=== PATIENT | male | born 1975 | race Two or more races ===

== ENCOUNTER 2024-05-10 23:46 | Inpatient (IN) | payer OTHER ==
[~2024-05-10] VITALS: Ht 188 cm; Wt 94.7 kg
[2024-05-11] MEDS ORDERED: GLIP5TAB16 PO (01:25)
[2024-05-11] MEDS ORDERED: XALA2.5OS OU (01:25)
[2024-05-11] MEDS ORDERED: AMLO-257 PO (01:25)
[2024-05-11] MEDS ORDERED: ATOR40TA28 PO (01:25)
[2024-05-11] MEDS ORDERED: INSREG SQ (01:25)
[2024-05-11] MEDS ORDERED: LISI-894 PO (01:25)
[2024-05-11] MEDS ORDERED: DULA1.5P SQ (01:25)
[2024-05-11] MEDS: ONDANSETRON HCL 4 MG/2 ML VIAL IVP ONE (02:22)
[2024-05-11] MEDS: KETOROLAC TROMETHAMINE 30 MG/ML VIAL IVP ONE (02:22)
[2024-05-11 02:25] LABS: BASOPHILS % (AUTO) 0.3 % (0.0-2.0); EOSINOPHILS % (AUTO) 0.8 % (1.0-6.0); HEMATOCRIT 40.6 % (41-53); HEMOGLOBIN 14.4 g/dL (13.5-17.5); LYMPHOCYTES # (AUTO) 2.9 K/uL (1.0-4.8); LYMPHOCYTES % (AUTO) 16.3 % (22.0-44.0); MEAN CORPUSCULAR HEMOGLOBIN 31.4 pg (26.0-34.0); MEAN CORPUSCULAR HGB CONC 35.5 G/dL (31.0-37.0); MEAN CORPUSCULAR VOLUME 89 fL (80-100); MONOCYTES # (AUTO) 0.9 K/uL (0.1-1.0); MONOCYTES % (AUTO) 4.8 % (2.0-9.0); NEUTROPHILS # (AUTO) 13.8 K/uL (1.8-7.7); NEUTROPHILS % (AUTO) 77.8 % (40.0-70.0); PLATELET COUNT (AUTO) 208 K/uL (150-450); RED BLOOD CELL COUNT(AUTO) 4.59 MIL/uL (4.50-5.90); RED CELL DISTRIBUTION WIDTH 13.4 % (11.5-14.5); WHITE BLOOD COUNT (AUTO) 17.7 K/uL (4.5-11.0)
[2024-05-11 02:33] LABS: ANION GAP 3 mmol/L (8-16); CALCIUM, TOTAL 8.9 mg/dL (8.8-10.5); CARBON DIOXIDE 32 mmol/L (22-29); CHLORIDE 101 mmol/L (98-107); CREATININE 0.73 mg/dL (0.60-1.30); GLOMERULAR FILTR. RATE CALC > 60 mL/min (>60); GLUCOSE,RANDOM 277 mg/dL (70-110); POTASSIUM 3.8 mmol/L (3.5-5.1); SODIUM SERUM 136 mmol/L (136-145); UREA NITROGEN, BLOOD 10 mg/dL (7-18)
[2024-05-11 02:48] LABS: ALANINE AMINOTRANSFERASE 89 U/L (12-78); ALBUMIN 3.1 g/dL (3.4-5.0); ALKALINE PHOSPHATASE 71 U/L (46-116); ASPARTATE AMINOTRANSFERASE 46 U/L (15-37); BILIRUBIN,TOTAL 0.5 mg/dL (0.1-1.0); CREATINE KINASE, TOTAL ONLY 46 U/L (39-308); LIPASE 20 U/L (16-77); TOTAL PROTEIN, SERUM 7.3 g/dL (6.4-8.2)
[2024-05-11 02:50] LABS: B-TYPE NATRIURETIC PEPTIDE 5 pg/mL (0-100); TROPONIN I-HIGH SENSITIVITY 6 ng/L (<76)
[2024-05-11] MEDS: HYDROmorphone HCL 2 MG/ML SYRINGE IVP ONE (04:27)
[2024-05-11] MEDS ORDERED: MAGNESIUM HYDROXIDE SUSPENSION 30 ML UDCUP PO PRN (06:00)
[2024-05-11] MEDS: CefTRIAXone 1 GM/DEXTROSE 50 ML IV ONE (06:01)
[2024-05-11] MEDS: SODIUM CHLORIDE 0.9% 1,000 ML IV ONE (06:01)
[2024-05-11 06:32] LABS: APPEARANCE,URINE CLEAR (CLEAR); BILIRUBIN,URINE NEGATIVE (NEGATIVE); COLOR,URINE YELLOW (YELLOW); GLUCOSE, URINE (UA) >=1000 mg/dL (NEGATIVE); KETONES,URINE TRACE mg/dL (NEGATIVE); LEUKOCYTE ESTERASE ,URINE NEGATIVE (NEGATIVE); NITRATE,URINE NEGATIVE (NEGATIVE); OCCULT BLOOD,URINE NEGATIVE (NEGATIVE); PH,URINE 6.5 (5.0-8.0); PROTEIN,URINE 100-200,SEE CONFIRM mg/dL (NEGATIVE)
[2024-05-11 06:34] LABS: LACTIC ACID 1.8 mmol/L (0.4-2.0)
[2024-05-11] MEDS ORDERED: DEXTROSE 50%-WATER 25 GM/50 ML SYRINGE IVP PRN (08:30)
[2024-05-11 08:44] LABS: SULFOSALICYLIC ACID,URINE 2+ (Negative)
[2024-05-11 08:45] LABS: BACTERIA,URINE None Seen /HPF (None Seen); RBC,URINE None Seen /HPF (0-2); WBC,URINE 0-2 /HPF (0-5)
[2024-05-11] MEDS: FAMOTIDINE 20 MG TABLET PO SCH (08:45)
[2024-05-11] MEDS: INSULIN LISPRO 100 UNITS/ML SQ PRN (08:57)
[2024-05-11 12:15] LABS: GLUCOMETER DEV NAME(LOC) ER.7; GLUCOSE,POINT OF CARE 275 MG/DL (70-110)
[2024-05-11] MEDS: ACETAMINOPHEN 325 MG TABLET PO PRN (13:15)
[2024-05-11 15:52] VITALS: BP 134/68; PULSE 63; RESP 20; TEMP 97.2
[2024-05-11] MEDS: HYDROCODONE/ACETAMINOPHEN 5-325 MG TABLET PO PRN (15:57)
[2024-05-11] MEDS: MORPHINE SULFATE 2 MG/ML SYRINGE IVP PRN (17:30)
[2024-05-11 17:40] LABS: GLUCOMETER DEV NAME(LOC) 6S.2; GLUCOSE,POINT OF CARE 155 MG/DL (70-110)
[2024-05-11] MEDS: ONDANSETRON HCL 4 MG/2 ML VIAL IVP PRN (19:24)
[2024-05-11 19:40] VITALS: BP 164/66; PULSE 134; RESP 18; TEMP 101.1; TEMP 98.2
[2024-05-11] MEDS: RINGERS SOLUTION,LACTATED 500 ML IV ONE (19:59)
[2024-05-11] MEDS: MORPHINE SULFATE 2 MG/ML SYRINGE IVP ONE (20:05)
[2024-05-11 21:12] VITALS: BP 118/59; PULSE 132; RESP 20; TEMP 100.5
[2024-05-12 00:21] VITALS: BP 125/73; PULSE 111; RESP 20; TEMP 98.8
[2024-05-12 04:28] VITALS: BP 128/74; PULSE 90; RESP 17; TEMP 98.2
[2024-05-12] MEDS ORDERED: SODIUM CHLORIDE 0.9% 250 ML IV ONE (04:34)
[2024-05-12] MEDS: CefTRIAXone 1 GM/DEXTROSE 50 ML IV SCH (05:25)
[2024-05-12 08:10] VITALS: BP 121/75; PULSE 89; RESP 18; TEMP 97.6
[2024-05-12 08:20] LABS: GLUCOMETER DEV NAME(LOC) 5S.2D; GLUCOSE,POINT OF CARE 269 MG/DL (70-110)
[2024-05-12 11:20] LABS: GLUCOMETER DEV NAME(LOC) 5S.2D; GLUCOSE,POINT OF CARE 267 MG/DL (70-110)
[2024-05-12 11:27] LABS: BASOPHILS % (AUTO) 0.2 % (0.0-2.0); EOSINOPHILS % (AUTO) 1.2 % (1.0-6.0); HEMATOCRIT 37.6 % (41-53); LYMPHOCYTES # (AUTO) 3.4 K/uL (1.0-4.8); LYMPHOCYTES % (AUTO) 27.7 % (22.0-44.0); MEAN CORPUSCULAR HEMOGLOBIN 31.2 pg (26.0-34.0); MEAN CORPUSCULAR HGB CONC 34.6 G/dL (31.0-37.0); MEAN CORPUSCULAR VOLUME 90 fL (80-100); MONOCYTES % (AUTO) 8.4 % (2.0-9.0); NEUTROPHILS # (AUTO) 7.7 K/uL (1.8-7.7); NEUTROPHILS % (AUTO) 62.5 % (40.0-70.0); PLATELET COUNT (AUTO) 178 K/uL (150-450); RED BLOOD CELL COUNT(AUTO) 4.17 MIL/uL (4.50-5.90); RED CELL DISTRIBUTION WIDTH 13.3 % (11.5-14.5); WHITE BLOOD COUNT (AUTO) 12.4 K/uL (4.5-11.0)
[2024-05-12 11:40] VITALS: BP 132/76; PULSE 93; RESP 19; TEMP 98.6
[2024-05-12 11:56] LABS: GLUCOMETER DEV NAME(LOC) 6N.2B; GLUCOSE,POINT OF CARE 195 MG/DL (70-110)
[2024-05-12 15:47] VITALS: BP 126/81; PULSE 97; RESP 18; TEMP 98.8
[2024-05-12] MEDS ORDERED: MEBROFENIN TC99M/MCL ISOTOPE 1 EA INJ INJ ONE (16:40)
[2024-05-12 20:04] VITALS: BP 125/68; PULSE 96; RESP 18; TEMP 98.7
[2024-05-13 01:26] LABS: GLUCOMETER DEV NAME(LOC) 5S.2D; GLUCOSE,POINT OF CARE 348 MG/DL (70-110)
[2024-05-13 02:20] VITALS: BP 126/80; PULSE 84; RESP 18; TEMP 98.5
[2024-05-13 05:30] VITALS: BP 127/71; PULSE 78; RESP 18; TEMP 98.7
[2024-05-13 07:30] LABS: BASOPHILS % (AUTO) 0.2 % (0.0-2.0); EOSINOPHILS % (AUTO) 1.8 % (1.0-6.0); HEMATOCRIT 36.8 % (41-53); HEMOGLOBIN 12.9 g/dL (13.5-17.5); LYMPHOCYTES # (AUTO) 3.4 K/uL (1.0-4.8); LYMPHOCYTES % (AUTO) 40.2 % (22.0-44.0); MEAN CORPUSCULAR HEMOGLOBIN 31.8 pg (26.0-34.0); MEAN CORPUSCULAR HGB CONC 35.1 G/dL (31.0-37.0); MEAN CORPUSCULAR VOLUME 91 fL (80-100); MONOCYTES # (AUTO) 0.9 K/uL (0.1-1.0); MONOCYTES % (AUTO) 10.1 % (2.0-9.0); NEUTROPHILS # (AUTO) 4.1 K/uL (1.8-7.7); NEUTROPHILS % (AUTO) 47.7 % (40.0-70.0); PLATELET COUNT (AUTO) 158 K/uL (150-450); RED BLOOD CELL COUNT(AUTO) 4.07 MIL/uL (4.50-5.90); RED CELL DISTRIBUTION WIDTH 13.5 % (11.5-14.5); WHITE BLOOD COUNT (AUTO) 8.5 K/uL (4.5-11.0)
[2024-05-13 07:47] LABS: ALANINE AMINOTRANSFERASE 48 U/L (12-78); ALBUMIN 2.5 g/dL (3.4-5.0); ALKALINE PHOSPHATASE 57 U/L (46-116); ANION GAP 5 mmol/L (8-16); ASPARTATE AMINOTRANSFERASE 18 U/L (15-37); BILIRUBIN,TOTAL 0.7 mg/dL (0.1-1.0); CALCIUM, TOTAL 8.1 mg/dL (8.8-10.5); CARBON DIOXIDE 29 mmol/L (22-29); CHLORIDE 103 mmol/L (98-107); CREATININE 0.73 mg/dL (0.60-1.30); GLOMERULAR FILTR. RATE CALC > 60 mL/min (>60); GLUCOSE,RANDOM 258 mg/dL (70-110); POTASSIUM 3.7 mmol/L (3.5-5.1); SODIUM SERUM 137 mmol/L (136-145); TOTAL PROTEIN, SERUM 6.5 g/dL (6.4-8.2); UREA NITROGEN, BLOOD 7 mg/dL (7-18)
[2024-05-13 08:09] VITALS: BP 123/67; PULSE 76; RESP 18; TEMP 98
[2024-05-13 09:36] LABS: GLUCOMETER DEV NAME(LOC) 5S.2D; GLUCOSE,POINT OF CARE 269 MG/DL (70-110)
[2024-05-13] MEDS: GlipiZIDE 5 MG TABLET PO SCH (11:31)
[2024-05-13 12:00] VITALS: BP 122/70; PULSE 74; RESP 17; TEMP 98
[2024-05-13 15:12] VITALS: BP 134/81; PULSE 78; RESP 18; TEMP 98
[2024-05-13 21:00] VITALS: BP 142/74; PULSE 82; RESP 18; TEMP 98.5
[2024-05-14] VITALS: BP 154/76; PULSE 79; RESP 18; TEMP 98.4
[2024-05-14 00:06] LABS: GLUCOMETER DEV NAME(LOC) 5N.2C; GLUCOSE,POINT OF CARE 196 MG/DL (70-110)
[2024-05-14 00:06] LABS: GLUCOMETER DEV NAME(LOC) 5N.2C; GLUCOSE,POINT OF CARE 268 MG/DL (70-110)
[2024-05-14] MEDS ORDERED: LEVOFLOXACIN 500 MG TABLET PO SCH (09:00)
== END 2024-05-14 02:00 | DRG 445 ==
LOC: EMS 23:46 → EDH 05-11 06:19 → 6S 05-11 15:20 → 5S 05-11 22:45 → UNDODISIN 05-13 13:00
PROVIDERS: ADMIT Internal Medicine; ATTEND Internal Medicine
DX: K80.20 Calculus of gallbladder without cholecystitis without obstruction (principal); N12 Tubulo-interstitial nephritis, not specified as acute or chronic; R65.10 Systemic inflammatory response syndrome (SIRS) of non-infectious origin without acute organ dysfunction; F32.A Depression, unspecified; E78.00 Pure hypercholesterolemia, unspecified; I10 Essential (primary) hypertension; K74.60 Unspecified cirrhosis of liver; E11.43 Type 2 diabetes mellitus with diabetic autonomic (poly)neuropathy; K31.84 Gastroparesis; Z83.3 Family history of diabetes mellitus
CPT/HCPCS: 71045; 74176; 76700; 78226; 80053; 81001; 81002; 82550; 82962; 83605; 83690; 83880; 84484; 85025; 87040; 93005; 99285; A9537; J0696; J1170; J1815; J1885; J2270; J2405; J7050; J7120; 36415-L1; 36415-TC

== ENCOUNTER 2024-05-16 20:37 | Inpatient (IN) | payer OTHER ==
[~2024-05-16] VITALS: Ht 188 cm; Wt 86.4 kg
[~2024-05-16 20:37] MED LIST: AMLO-257 PO; ATOR40TA28 PO; DULA1.5P SQ; GLIP5TAB16 PO; INSREG SQ; LISI-894 PO; XALA2.5OS OU
[2024-05-16 21:01] LABS: BASOPHILS % (AUTO) 0.6 % (0.0-2.0); EOSINOPHILS % (AUTO) 2.6 % (1.0-6.0); HEMATOCRIT 41.1 % (41-53); HEMOGLOBIN 14.2 g/dL (13.5-17.5); LYMPHOCYTES # (AUTO) 3.5 K/uL (1.0-4.8); LYMPHOCYTES % (AUTO) 57.1 % (22.0-44.0); MEAN CORPUSCULAR HEMOGLOBIN 31.3 pg (26.0-34.0); MEAN CORPUSCULAR HGB CONC 34.5 G/dL (31.0-37.0); MEAN CORPUSCULAR VOLUME 91 fL (80-100); MONOCYTES # (AUTO) 0.6 K/uL (0.1-1.0); MONOCYTES % (AUTO) 9.7 % (2.0-9.0); NEUTROPHILS # (AUTO) 1.9 K/uL (1.8-7.7); PLATELET COUNT (AUTO) 234 K/uL (150-450); RED BLOOD CELL COUNT(AUTO) 4.53 MIL/uL (4.50-5.90); RED CELL DISTRIBUTION WIDTH 13.6 % (11.5-14.5); WHITE BLOOD COUNT (AUTO) 6.2 K/uL (4.5-11.0)
[2024-05-16 21:16] LABS: ANION GAP 2 mmol/L (8-16); CALCIUM, TOTAL 9.4 mg/dL (8.8-10.5); CARBON DIOXIDE 33 mmol/L (22-29); CHLORIDE 104 mmol/L (98-107); CREATININE 0.78 mg/dL (0.60-1.30); GLOMERULAR FILTR. RATE CALC > 60 mL/min (>60); GLUCOSE,RANDOM 216 mg/dL (70-110); POTASSIUM 4.5 mmol/L (3.5-5.1); SODIUM SERUM 139 mmol/L (136-145); UREA NITROGEN, BLOOD 8 mg/dL (7-18)
[2024-05-16 21:18] LABS: ALANINE AMINOTRANSFERASE 81 U/L (12-78); ALBUMIN 2.9 g/dL (3.4-5.0); ALKALINE PHOSPHATASE 82 U/L (46-116); ASPARTATE AMINOTRANSFERASE 59 U/L (15-37); BILIRUBIN,TOTAL 0.4 mg/dL (0.1-1.0); LIPASE 38 U/L (16-77); TOTAL PROTEIN, SERUM 7.3 g/dL (6.4-8.2)
[2024-05-16] MEDS: SODIUM CHLORIDE 0.9% 1,000 ML IV ONE (22:57)
[2024-05-16] MEDS: ONDANSETRON HCL 4 MG/2 ML VIAL IVP ONE (22:58)
[2024-05-16] MEDS: KETOROLAC TROMETHAMINE 30 MG/ML VIAL IVP ONE (22:58)
[2024-05-17] MEDS: RINGERS SOLUTION,LACTATED 1,000 ML IV SCH (00:12)
[2024-05-17] MEDS: ACETAMINOPHEN 325 MG TABLET PO PRN (00:25)
[2024-05-17 01:10] VITALS: BP 139/75; PULSE 58; RESP 18; TEMP 97.6
[2024-05-17 04:34] VITALS: BP 145/78; PULSE 58; RESP 18; TEMP 97.8
[2024-05-17] MEDS: MORPHINE SULFATE 2 MG/ML SYRINGE IVP PRN (04:59)
[2024-05-17 07:06] LABS: BASOPHILS % (AUTO) 0.4 % (0.0-2.0); EOSINOPHILS % (AUTO) 3.7 % (1.0-6.0); HEMATOCRIT 35.2 % (41-53); HEMOGLOBIN 12.3 g/dL (13.5-17.5); LYMPHOCYTES # (AUTO) 3.6 K/uL (1.0-4.8); LYMPHOCYTES % (AUTO) 60.5 % (22.0-44.0); MEAN CORPUSCULAR HEMOGLOBIN 31.6 pg (26.0-34.0); MEAN CORPUSCULAR HGB CONC 35.1 G/dL (31.0-37.0); MEAN CORPUSCULAR VOLUME 90 fL (80-100); MONOCYTES # (AUTO) 0.6 K/uL (0.1-1.0); MONOCYTES % (AUTO) 10.3 % (2.0-9.0); NEUTROPHILS # (AUTO) 1.5 K/uL (1.8-7.7); NEUTROPHILS % (AUTO) 25.1 % (40.0-70.0); PLATELET COUNT (AUTO) 198 K/uL (150-450); RED BLOOD CELL COUNT(AUTO) 3.91 MIL/uL (4.50-5.90)
[2024-05-17] MEDS: DOCUSATE SODIUM 100 MG CAPSULE PO SCH (08:05)
[2024-05-17] MEDS: AmLODIPine BESYLATE 5 MG TABLET PO SCH (08:06)
[2024-05-17] MEDS: ATORVASTATIN CALCIUM 40 MG TABLET PO SCH (08:06)
[2024-05-17 08:12] LABS: ANION GAP 5 mmol/L (8-16); CALCIUM, TOTAL 8.4 mg/dL (8.8-10.5); CARBON DIOXIDE 30 mmol/L (22-29); CHLORIDE 106 mmol/L (98-107); CREATININE 0.74 mg/dL (0.60-1.30); GLOMERULAR FILTR. RATE CALC > 60 mL/min (>60); GLUCOSE,RANDOM 124 mg/dL (70-110); SODIUM SERUM 141 mmol/L (136-145); UREA NITROGEN, BLOOD 10 mg/dL (7-18)
[2024-05-17 08:24] VITALS: BP_SYST 112; BP_SYST 138; BP_DIAS 65; BP_DIAS 76; PULSE 52; PULSE 72; RESP 18; TEMP 98.1
[2024-05-17 11:43] LABS: APPEARANCE,URINE CLEAR (CLEAR); BILIRUBIN,URINE NEGATIVE (NEGATIVE); COLOR,URINE YELLOW (YELLOW); GLUCOSE, URINE (UA) 70-100 mg/dL (NEGATIVE); KETONES,URINE NEGATIVE (NEGATIVE); LEUKOCYTE ESTERASE ,URINE NEGATIVE (NEGATIVE); NITRATE,URINE NEGATIVE (NEGATIVE); OCCULT BLOOD,URINE NEGATIVE (NEGATIVE); PROTEIN,URINE 30-70 mg/dL (NEGATIVE); SPECIFIC GRAVITIY, URINE 1.022 (1.003-1.030)
[2024-05-17 12:11] LABS: BACTERIA,URINE None Seen /HPF (None Seen); RBC,URINE 0-2 /HPF (0-2); WBC,URINE None Seen /HPF (0-5)
[2024-05-17 12:37] LABS: INR 1.1 (0.9-1.1); PROTHROMBIN TIME 11.7 SEC (9.4-11.6)
[2024-05-17 20:12] VITALS: BP 131/71; PULSE 55; RESP 20; TEMP 98.1
[2024-05-17] MEDS: LATANOPROST 0.005% 2.5 ML OPHTHALMIC SOLUTION OU SCH (20:12)
[2024-05-17] MEDS: HEPARIN SODIUM,PORCINE 5,000 UNITS/ML VIAL SQ SCH (23:31)
[2024-05-18 05:00] VITALS: BP 127/69; PULSE 49; RESP 18; TEMP 98.2
[2024-05-18] MEDS ORDERED: FentaNYL CITRATE PF 100 MCG/2 ML VIAL ONE (06:16)
[2024-05-18] MEDS ORDERED: ACETAMINOPHEN/ISO-OSM 1000 MG/100 ML BOTTLE IV ONE (06:16)
[2024-05-18] MEDS ORDERED: 0.9% SODIUM CHLORIDE 10 ML VIAL ONE (06:16)
[2024-05-18] MEDS ORDERED: ONDANSETRON HCL 4 MG/2 ML VIAL ONE (06:16)
[2024-05-18] MEDS ORDERED: KETOROLAC TROMETHAMINE 60 MG/2 ML VIAL IM ONE (06:16)
[2024-05-18] MEDS ORDERED: LIDOCAINE/PF 2% 5 ML VIAL ONE (06:16)
[2024-05-18] MEDS ORDERED: ROCURONIUM BROMIDE 10 MG/ML 5 ML VIAL ONE (06:16)
[2024-05-18] MEDS ORDERED: MORPHINE SULFATE 10 MG/ML VIAL ONE (06:16)
[2024-05-18] MEDS ORDERED: SUGAMMADEX SODIUM 200 MG/2 ML VIAL IVP ONE (06:16)
[2024-05-18] MEDS ORDERED: CeFAZolin SODIUM 1 GM VIAL ONE (06:16)
[2024-05-18] MEDS ORDERED: PROPOFOL 1% 20 ML VIAL IVP ONE (06:16)
[2024-05-18] MEDS ORDERED: MIDAZOLAM HCL 2 MG/2 ML VIAL ONE (06:16)
[2024-05-18] MEDS: ETHYL ALCOHOL 62% ANTISEPTIC NASAL SANITIZER 0.6 ML AMPUL NASAL ONE (08:21)
[2024-05-18 08:42] VITALS: BP 132/71; PULSE 52; RESP 18; TEMP 97.7
[2024-05-18] MEDS: CHLORHEXIDINE GLUCONATE 2% TOWELETTE [2'S/6'S] TP ONE (11:58)
[2024-05-18] MEDS ORDERED: RINGERS SOLUTION,LACTATED 1,000 ML IV ONE ×3 (13:00→14:46)
[2024-05-18] MEDS ORDERED: SODIUM CL IRRIG SOLN BAG 3,000 ML IRRIG ONE (13:07)
[2024-05-18 14:31] LABS: GLUCOMETER DEV NAME(LOC) SDS.; GLUCOSE,POINT OF CARE 121 MG/DL (70-110)
[2024-05-18] MEDS: BUPIVACAINE 0.25%/EPI 1:200,000/PF 30 ML VIAL ONE (15:00)
[2024-05-18] MEDS ORDERED: BUPIVACAINE 0.25%/EPI 1:200,000/PF 30 ML VIAL ONE (15:29)
[2024-05-18] MEDS ORDERED: HYDROmorphone HCL 2 MG/ML SYRINGE IVP PRN ×2 (15:45→16:00)
[2024-05-18] MEDS ORDERED: FentaNYL CITRATE PF 100 MCG/2 ML VIAL IVP PRN (15:45)
[2024-05-18] MEDS ORDERED: MEPERIDINE-PF 25 MG/ML VIAL IVP PRN (15:45)
[2024-05-18] MEDS ORDERED: MORPHINE SULFATE 4 MG/ML SYRINGE IVP PRN (16:00)
[2024-05-18] MEDS: ONDANSETRON HCL 4 MG/2 ML VIAL IVP PRN (17:18)
[2024-05-18] MEDS ORDERED: DEXTROSE 50%-WATER 25 GM/50 ML SYRINGE IVP PRN (18:45)
[2024-05-18] MEDS: OXYGEN THERAPY IH SCH (20:00)
[2024-05-18] MEDS: HYDROCODONE/ACETAMINOPHEN 5-325 MG TABLET PO PRN (20:19)
[2024-05-18 20:21] VITALS: BP 133/69; PULSE 75; RESP 20; TEMP 98.1
[2024-05-18] MEDS: INSULIN LISPRO 100 UNITS/ML SQ PRN (20:22)
[2024-05-19 05:07] VITALS: BP 137/72; PULSE 70; RESP 20; TEMP 98.3
[2024-05-19 06:48] LABS: BASOPHILS % (AUTO) 0.2 % (0.0-2.0); EOSINOPHILS % (AUTO) 0 % (1.0-6.0); HEMATOCRIT 39.5 % (41-53); HEMOGLOBIN 14.1 g/dL (13.5-17.5); LYMPHOCYTES # (AUTO) 1.3 K/uL (1.0-4.8); LYMPHOCYTES % (AUTO) 13.5 % (22.0-44.0); MEAN CORPUSCULAR HEMOGLOBIN 31.9 pg (26.0-34.0); MEAN CORPUSCULAR HGB CONC 35.8 G/dL (31.0-37.0); MEAN CORPUSCULAR VOLUME 89 fL (80-100); MONOCYTES # (AUTO) 0.5 K/uL (0.1-1.0); MONOCYTES % (AUTO) 5.5 % (2.0-9.0); NEUTROPHILS # (AUTO) 8.1 K/uL (1.8-7.7); NEUTROPHILS % (AUTO) 80.8 % (40.0-70.0); PLATELET COUNT (AUTO) 225 K/uL (150-450); RED BLOOD CELL COUNT(AUTO) 4.43 MIL/uL (4.50-5.90); RED CELL DISTRIBUTION WIDTH 13.2 % (11.5-14.5)
[2024-05-19 07:23] LABS: ALANINE AMINOTRANSFERASE 108 U/L (12-78); ALBUMIN 2.4 g/dL (3.4-5.0); ALKALINE PHOSPHATASE 96 U/L (46-116); ANION GAP 6 mmol/L (8-16); ASPARTATE AMINOTRANSFERASE 99 U/L (15-37); BILIRUBIN,TOTAL 0.4 mg/dL (0.1-1.0); CALCIUM, TOTAL 8.3 mg/dL (8.8-10.5); CARBON DIOXIDE 30 mmol/L (22-29); CHLORIDE 100 mmol/L (98-107); CREATININE 0.91 mg/dL (0.60-1.30); GLOMERULAR FILTR. RATE CALC > 60 mL/min (>60); GLUCOSE,RANDOM 275 mg/dL (70-110); POTASSIUM 4.1 mmol/L (3.5-5.1); SODIUM SERUM 136 mmol/L (136-145); TOTAL PROTEIN, SERUM 6.5 g/dL (6.4-8.2); UREA NITROGEN, BLOOD 8 mg/dL (7-18)
[2024-05-19 08:10] LABS: GLUCOMETER DEV NAME(LOC) 6N.2B; GLUCOSE,POINT OF CARE 380 MG/DL (70-110)
[2024-05-19 08:10] LABS: GLUCOMETER DEV NAME(LOC) 6S.2; GLUCOSE,POINT OF CARE 240 MG/DL (70-110)
[2024-05-19 08:27] VITALS: BP 139/61; PULSE 69; RESP 20; TEMP 98.1
[2024-05-19] MEDS: CefTRIAXone 1 GM/DEXTROSE 50 ML IV ONE (13:40)
[2024-05-19] MEDS ORDERED: SODIUM CHLORIDE 0.9% 500 ML IV ONE (13:42)
[2024-05-19] MEDS ORDERED: AMOX-457 PO (13:57)
[2024-05-19 20:10] LABS: GLUCOMETER DEV NAME(LOC) 4E.2; GLUCOSE,POINT OF CARE 292 MG/DL (70-110)
[2024-05-19 20:10] LABS: GLUCOMETER DEV NAME(LOC) 4E.2; GLUCOSE,POINT OF CARE 258 MG/DL (70-110)
== END 2024-05-19 19:52 | DRG 419 ==
LOC: EMS 20:39 → EDH 23:54 → 6S 05-17 01:10
PROVIDERS: ADMIT Internal Medicine; ATTEND Internal Medicine
PROC: 0FT44ZZ Resection of Gallbladder, Percutaneous Endoscopic Approach (ICD-10-PCS; principal; 2024-05-17)
PROC: 0DNU4ZZ Release Omentum, Percutaneous Endoscopic Approach (ICD-10-PCS; 2024-05-17)
DX: K80.10 Calculus of gallbladder with chronic cholecystitis without obstruction (principal); K74.60 Unspecified cirrhosis of liver; E11.65 Type 2 diabetes mellitus with hyperglycemia; F32.A Depression, unspecified; E78.00 Pure hypercholesterolemia, unspecified; I10 Essential (primary) hypertension; K66.0 Peritoneal adhesions (postprocedural) (postinfection); Z83.3 Family history of diabetes mellitus; Z79.899 Other long term (current) drug therapy
CPT/HCPCS: 76705; 80048; 80053; 81001; 82962; 83690; 83735; 85025; 85610; 88304; 99285; G0238; G0378; J0131; J0690; J0696; J1644; J1885; J2250; J2270; J2405; J2704; J3010; J3490; J7030; J7040; J7120; Q9967

== ENCOUNTER 2024-05-28 03:10 | Emergency (ER) | payer OTHER ==
[~2024-05-28] VITALS: Ht 188 cm; Wt 90.5 kg
[~2024-05-28 03:10] MED LIST changes: +AMOX-457 PO
[2024-05-28 03:17] VITALS: TEMP 97.1
[2024-05-28 04:22] LABS: BASOPHILS % (AUTO) 0.6 % (0.0-2.0); EOSINOPHILS % (AUTO) 2.8 % (1.0-6.0); HEMATOCRIT 39.9 % (41-53); HEMOGLOBIN 13.7 g/dL (13.5-17.5); LYMPHOCYTES # (AUTO) 4.2 K/uL (1.0-4.8); LYMPHOCYTES % (AUTO) 55.3 % (22.0-44.0); MEAN CORPUSCULAR HEMOGLOBIN 31.2 pg (26.0-34.0); MEAN CORPUSCULAR HGB CONC 34.4 G/dL (31.0-37.0); MEAN CORPUSCULAR VOLUME 91 fL (80-100); MONOCYTES # (AUTO) 0.6 K/uL (0.1-1.0); MONOCYTES % (AUTO) 8.4 % (2.0-9.0); NEUTROPHILS # (AUTO) 2.5 K/uL (1.8-7.7); NEUTROPHILS % (AUTO) 32.9 % (40.0-70.0); PLATELET COUNT (AUTO) 238 K/uL (150-450); RED BLOOD CELL COUNT(AUTO) 4.39 MIL/uL (4.50-5.90); RED CELL DISTRIBUTION WIDTH 13.6 % (11.5-14.5); WHITE BLOOD COUNT (AUTO) 7.5 K/uL (4.5-11.0)
[2024-05-28 04:31] LABS: ANION GAP 6 mmol/L (8-16); CARBON DIOXIDE 31 mmol/L (22-29); CHLORIDE 102 mmol/L (98-107); CREATININE 0.61 mg/dL (0.60-1.30); GLOMERULAR FILTR. RATE CALC > 60 mL/min (>60); GLUCOSE,RANDOM 186 mg/dL (70-110); POTASSIUM 3.9 mmol/L (3.5-5.1); SODIUM SERUM 139 mmol/L (136-145); UREA NITROGEN, BLOOD 11 mg/dL (7-18)
[2024-05-28 04:37] LABS: ALANINE AMINOTRANSFERASE 84 U/L (12-78); ALBUMIN 2.9 g/dL (3.4-5.0); ALKALINE PHOSPHATASE 130 U/L (46-116); ASPARTATE AMINOTRANSFERASE 54 U/L (15-37); BILIRUBIN,TOTAL 0.5 mg/dL (0.1-1.0); LIPASE 22 U/L (16-77); TOTAL PROTEIN, SERUM 7.3 g/dL (6.4-8.2)
[2024-05-28 04:39] LABS: TROPONIN I-HIGH SENSITIVITY 14 ng/L (<76)
[2024-05-28 05:41] LABS: GLUCOMETER DEV NAME(LOC) ER.7; GLUCOSE,POINT OF CARE 183 MG/DL (70-110)
[2024-05-28 10:05] VITALS: BP 120/72; PULSE 67; RESP 16
== END 2024-05-28 10:06 | disposition home or self-care (01) ==
LOC: EMS 03:17
DX: R10.10 Upper abdominal pain, unspecified (principal); E11.311 Type 2 diabetes mellitus with unspecified diabetic retinopathy with macular edema; E11.65 Type 2 diabetes mellitus with hyperglycemia; E44.0 Moderate protein-calorie malnutrition; I10 Essential (primary) hypertension; E78.00 Pure hypercholesterolemia, unspecified; F32.A Depression, unspecified; K80.20 Calculus of gallbladder without cholecystitis without obstruction; F15.90 Other stimulant use, unspecified, uncomplicated
CPT/HCPCS: 74176; 80048; 80076; 82962; 83690; 84484; 85025; 99284